=== PATIENT | female | born 1965 | race Caucasian/White ===

== ENCOUNTER → 2020-04-24 | Outpatient (CLI) | payer OTHER | LOC: EXRD 13:56 | DX: L40.50 Arthropathic psoriasis, unspecified (principal) | CPT/HCPCS: 73630 ==

== ENCOUNTER → 2021-01-30 | Outpatient (CLI) | payer OTHER | LOC: EDBD 10:37 → EXRD 10:37 | DX: L40.50 Arthropathic psoriasis, unspecified (principal) | CPT/HCPCS: 73630 ==